=== PATIENT | female | born 1980 | race Caucasian/White ===

== ENCOUNTER 2024-05-28 12:26 | Emergency (ER) | payer MEDICAID ==
[~2024-05-28] VITALS: Ht 157.5 cm; Wt 81.6 kg
[2024-05-28] MEDS ORDERED: CYCLOBENZAPRINE 10 MG TABLET ONE (13:05)
[2024-05-28] MEDS ORDERED: ACETAMINOPHEN ES 500 MG TABLET ONE (13:05)
[2024-05-28] MEDS: ACETAMINOPHEN 325 MG TABLET PO ONE (13:08)
[2024-05-28] MEDS: CYCLOBENZAPRINE 10 MG TABLET PO ONE (13:08)
[2024-05-28 14:25] VITALS: BP 119/80; TEMP 98; O2SAT 99
== END 2024-05-28 14:25 | disposition home or self-care (01) ==
LOC: ER 12:30
DX: R07.9 Chest pain, unspecified (principal); R51.9 Headache, unspecified; V43.52XA Car driver injured in collision with other type car in traffic accident, initial encounter; Y93.89 Activity, other specified; Y92.488 Other paved roadways as the place of occurrence of the external cause; Y99.8 Other external cause status
CPT/HCPCS: 70450-TC; 71045-TC